=== PATIENT | male | born 1985 | race Caucasian/White ===

== ENCOUNTER 2017-07-14 15:33 | Emergency (ER) | payer OTHER ==
[2017-07-14] MEDS: LORazepam 1 MG TAB PO ×2 (16:24→18:43)
== END 2017-07-14 18:45 | disposition home or self-care (01) ==
LOC: M ED 15:33
DX: F43.10 Post-traumatic stress disorder, unspecified (principal); F32.9 Major depressive disorder, single episode, unspecified; F41.9 Anxiety disorder, unspecified; F17.200 Nicotine dependence, unspecified, uncomplicated; Z88.0 Allergy status to penicillin
CPT/HCPCS: 99284

== ENCOUNTER 2018-04-11 19:00 | Emergency (ER) | payer OTHER ==
[~2018-04-11] VITALS: Ht 185.4 cm; Wt 81.8 kg
[~2018-04-11 19:00] MED LIST: ATIV1TAB10 PO; GABA-845 PO; PRAZ5CAP PO; PROP60TA14 PO; SERO200T PO; SERO400T PO; VENL75TA2 PO
--- NOTE | 2018-04-11 19:35 | REP ---
Clinical: Left shoulder pain with history of prior surgery. Technique: Internal rotation, external rotation, and Y view of the left shoulder. Findings: The acromioclavicular joint appears intact and normal. The humeral head is normal. Surgical plugs overlie the glenoid consistent with prior surgery. Subacromial space is normal. No periarticular calcifications or loose bodies. Impression: With the exception of the postsurgical changes, left shoulder appears normal by radiographic evaluation. Electronically Signed by Moises Lee MD 04/11/2018 07:26 P
[2018-04-11] MEDS ORDERED: METF500T13 PO (19:40)
[2018-04-11] MEDS ORDERED: VENL150C43 PO (19:40)
[2018-04-11] MEDS ORDERED: LANTINJ4 SC ×2 (19:40)
[2018-04-11] MEDS ORDERED: FOLI800C PO (19:40)
[2018-04-11] MEDS ORDERED: HYDR50TA70 PO (19:40)
[2018-04-11] MEDS ORDERED: BACL10TA2 PO (19:40)
[2018-04-11] MEDS ORDERED: BUSP15TA47 PO (19:40)
[2018-04-11] MEDS ORDERED: MELO15TA28 PO (19:40)
[2018-04-11] MEDS ORDERED: OMEP40CA2 PO (19:40)
[2018-04-11] MEDS ORDERED: KETOROLAC 60 MG/2 ML VIAL (J1885) IM ONE (20:30)
[2018-04-11 20:35] LABS: BASO # 0.1 10^3/uL (0.0-0.2); BASO % 0.3 % (0.0-1.0); EOS # 0.2 10^3/uL (0.0-0.50); EOS % 1.6 % (0.0-3.0); HEMATOCRIT 37.8 % (42.0-52.0); LYMPH % 20.5 % (24.0-44.0); MEAN CORPUSCULAR HEMOGLOBIN 29.5 pg (27.0-33.0); MEAN CORPUSCULAR HGB CONC 34.4 g/dl (32.0-36.5); MEAN CORPUSCULAR VOLUME 85.9 fl (80.0-96.0); MONO # 0.7 10^3/uL (0.0-0.8); NEUTROPHILS # 10.6 10^3/uL (1.8-7.7); NEUTROPHILS % 72.3 % (36.0-66.0); PLATELET COUNT, AUTOMATED 172 10^3/uL (150-450); WHITE BLOOD COUNT 14.6 10^3/uL (4.0-10.0)
[2018-04-11 20:59] LABS: ERYTHROCYTE SEDIMENTATION RATE 22 mm/hr (0-15)
[2018-04-11 21:02] LABS: C REACTIVE PROTEIN QUANTITATIV 0.66 MG/DL (0.00-0.30); URIC ACID 3.5 MG/DL (3.5-7.2)
[2018-04-11 21:07] VITALS: BP 127/73
[2018-04-11] MEDS ORDERED: NORCO, ANEXSIA 5/325MG TABLET (HYDROcodone/ACETAMINOPHEN) PO ONE (21:30)
[2018-04-11] MEDS ORDERED: NAPR-50 PO (21:34)
== END 2018-04-11 21:44 | disposition home or self-care (01) ==
LOC: M ED 19:00
DX: M19.112 Post-traumatic osteoarthritis, left shoulder (principal)
CPT/HCPCS: 73030; 84550; 85025; 85379; 85652; 86140; 96372; 99283; J1885

== ENCOUNTER 2018-05-29 13:20 | Inpatient (IN) | payer OTHER ==
[~2018-05-29] VITALS: Ht 185.4 cm; Wt 87.9 kg
[~2018-05-29 13:20] MED LIST changes: +BACL10TA2 PO; +BUSP15TA47 PO; +FOLI800C PO; +HYDR50TA70 PO; +LANTINJ4 SC; +MELO15TA28 PO; +METF500T13 PO; +NAPR-837 PO; +OMEP40CA2 PO; +VENL150C43 PO
[2018-05-29] MEDS ORDERED: OXAZEPAM 15 MG CAP PO ONE (13:45)
[2018-05-29] MEDS ORDERED: QUET1TAB9 PO (13:53)
[2018-05-29] MEDS ORDERED: D 101000 PO (13:53)
[2018-05-29 14:43] LABS: HEMATOCRIT 40.4 % (42.0-52.0); HEMOGLOBIN 13.8 g/dl (13.5-17.5); MEAN CORPUSCULAR HEMOGLOBIN 29.1 pg (27.0-33.0); MEAN CORPUSCULAR HGB CONC 34.2 g/dl (32.0-36.5); MEAN CORPUSCULAR VOLUME 85.2 fl (80.0-96.0); PLATELET COUNT, AUTOMATED 148 10^3/uL (150-450); RED BLOOD COUNT 4.74 10^6/uL (4.30-6.10); WHITE BLOOD COUNT 8.2 10^3/uL (4.0-10.0)
[2018-05-29 15:11] LABS: ALBUMIN 4.6 GM/DL (3.2-5.2); ALT/SGPT 150 U/L (12-78); BILIRUBIN,DIRECT 0.1 MG/DL (0.0-0.2); BILIRUBIN,TOTAL 0.3 MG/DL (0.2-1.0); BLOOD UREA NITROGEN 7 MG/DL (7-18); CALCIUM LEVEL 8.7 MG/DL (8.5-10.1); CARBON DIOXIDE LEVEL 23 MEQ/L (21-32); CHLORIDE LEVEL 106 MEQ/L (98-107); CREATININE FOR GFR 0.89 MG/DL (0.70-1.30); ETHYL ALCOHOL (ETHANOL) 0.287 % (0.000-0.010); GLOMERULAR FILTRATION RATE > 60.0 (>60); GLUCOSE, FASTING 341 MG/DL (70-100); POTASSIUM SERUM 4.1 MEQ/L (3.5-5.1); SALICYLATE LEVEL 2.6 MG/DL (5.0-30.0); SODIUM LEVEL 140 MEQ/L (136-145); TOTAL PROTEIN 7.9 GM/DL (6.4-8.2)
[2018-05-29 15:12] LABS: ACETAMINOPHEN LEVEL < 2.0 UG/ML (10.0-30.0)
[2018-05-29 15:18] LABS: AMPHETAMINES LEVEL URINE NEGATIVE (NEGATIVE); BARBITURATES URINE NEGATIVE (NEGATIVE); BENZODIAZEPINES URINE NEGATIVE (NEGATIVE); CANNABINOIDS URINE NEGATIVE (NEGATIVE); COCAINE METABOLITE URINE NEGATIVE (NEGATIVE); METHADONE URINE NEGATIVE (NEGATIVE); OPIATES URINE NEGATIVE (NEGATIVE); PHENCYCLIDINE URINE NEGATIVE (NEGATIVE)
[2018-05-29] MEDS ORDERED: LORazepam 2 MG TAB PO PRN (15:30)
[2018-05-29] MEDS ORDERED: PROMETHAZINE INJ 25 MG/ML VIAL (J2550) IM ONE (18:30)
[2018-05-29] MEDS ORDERED: ONDANSETRON 4 MG ORAL DISINTEGRATING TAB (Q0162 PER 1MG) PO ONE (20:15)
[2018-05-29] MEDS ORDERED: HumaLOG INSULIN (NovoLOG) PER UNIT SC STA (20:24)
[2018-05-29] MEDS ORDERED: clonazePAM 0.5 MG TAB PO ONE (20:30)
[2018-05-29] MEDS ORDERED: THIAMINE 100 MG TAB PO SCH (21:00)
[2018-05-29] MEDS ORDERED: GI COCKTAIL 50ML BTL(HYOSCYAMINE/MAALOX/LIDOCAINE VISCOUS)(1:3:1) PO ONE (21:15)
[2018-05-29 22:45] LABS: LIPASE 58 U/L (73-393)
[2018-05-29] MEDS ORDERED: PHENobarbital 30 MG TAB PO ONE (23:00)
[2018-05-30] VITALS (10 sets, daily range): BP systolic 120–177; BP diastolic 70–108
[2018-05-30] MEDS ORDERED: PHENobarbital INJ 65 MG/ML VIAL (J2560) IV STA ×4 (00:07→02:03)
[2018-05-30] MEDS ORDERED: PHENobarbital INJ 65 MG/ML VIAL (J2560) As Ordered ONE (00:09)
[2018-05-30] MEDS ORDERED: MULTIVITAMIN -ADULT INJECTION 10 ML, THIAMINE INJection 100 MG, FOLIC ACID 1 MG in NS 1... IV ONE (00:15)
[2018-05-30] MEDS ORDERED: KETOROLAC 30 MG/ML VIAL (J1885) IV ONE (00:45)
[2018-05-30 00:49] LABS: CPK CREATINE PHOSPHOKINASE 230 U/L (39-308)
[2018-05-30] MEDS ORDERED: PANTOPRAZOLE 40MG INJ (PROTONIX) (C9113) IV ONE ×2 (01:00)
[2018-05-30] MEDS ORDERED: FOLI1TAB11 PO (01:05)
[2018-05-30] MEDS ORDERED: QUET1TAB9 PO (01:05)
[2018-05-30] MEDS ORDERED: PRAZ5CAP PO (01:05)
[2018-05-30] MEDS ORDERED: BASA100I SC (01:05)
[2018-05-30] MEDS ORDERED: HYDR50CA2 PO (01:05)
[2018-05-30] MEDS ORDERED: QUET1TAB8 PO (01:05)
[2018-05-30] MEDS ORDERED: NAPR-885 PO (01:05)
[2018-05-30] MEDS ORDERED: GABA-843 PO (01:05)
[2018-05-30] MEDS ORDERED: PROP60TA14 PO (01:05)
[2018-05-30] MEDS ORDERED: METH1TAB40 PO (01:06)
[2018-05-30] MEDS ORDERED: MULTCAP PO (01:06)
[2018-05-30] MEDS ORDERED: TRAZ-160 PO (01:06)
[2018-05-30] MEDS ORDERED: VITA100T89 PO (01:06)
[2018-05-30] MEDS ORDERED: GI COCKTAIL 50ML BTL(HYOSCYAMINE/MAALOX/LIDOCAINE VISCOUS)(1:3:1) PO ONE (02:30)
[2018-05-30] MEDS ORDERED: GLUCAGON FOR INJ 1 MG VIAL (J1610) SC PRN (02:30)
[2018-05-30] MEDS ORDERED: DEXTROSE 50% 50 ML SYRINGE IV PRN (02:30)
[2018-05-30] MEDS ORDERED: GLUCOSE 4 GM CHEW TABLET PO PRN (02:30)
--- NOTE | 2018-05-30 03:17 | HPEPDOC ---
General Date of Admission May 29, 2018 at 13:21 Chief Complaint The patient is a 32-year-old male admitted with a reason for visit of Alcohol W ithdrawl Syndrome Without Complication. History of Present Illness 32-year-old male with past medical history of hypertension, diabetes, neuropathy, chronic pain, mood disorder/depression, and alcohol abuse was brought to the ER by a [employer] johnson after he stated that he was going into alcohol withdrawal and needed help. The patient states that he drinks a half a gallon of 80 proof vodka daily for the past 10 years. He reports that his last drink was this morning. He denies any acute complaints of fevers, chills, chest pain, palpitations, abdominal pain, or any nausea/vomiting/diarrhea. In the ER, the patient was noted to be tachycardic and was displaying signs/symptoms of active withdrawal as per the ER provider. He was given multiple doses of sedatives. The patient will be admitted to the hospitalist service for further evaluation and management. Home Medications Scheduled Baclofen (Baclofen) 10 Mg Tab, 10 MG PO TID, (Reported) Buspirone HCl (Buspirone HCl) 15 Mg Tab, 15 MG PO TID, (Reported) Cholecalciferol (Vitamin D3) (Vitamin D3) 1,000 Unit Capsule, 1,000 UNITS PO DAILY, (Reported) Folic Acid (Folic Acid) 1 Mg Tablet, 1 MG PO DAILY, (Reported) Gabapentin (Gabapentin) 300 Mg Capsule, 900 MG PO TID, (Reported) Hydroxyzine Pamoate (Hydroxyzine Pamoate) 50 Mg Capsule, 100 MG PO TID, (Reported) Insulin Glargine,Hum.rec.anlog (Basaglar Kwikpen U-100) 100 Unit/1 Ml Insuln.pen, 40 UNIT SC BID, (Reported) Meloxicam (Meloxicam) 15 Mg Tab, 15 MG PO DAILY, (Reported) Metformin HCl (Metformin HCl) 500 Mg Tab, 500 MG PO BID, (Reported) Methocarbamol (Methocarbamol) 500 Mg Tablet, 500 MG PO QID, (Reported) Multivitamin (Multivitamins) 1 Each Capsule, 1 CAP PO DAILY, (Reported) Naproxen (Naproxen) 500 Mg Tablet, 500 MG PO BID, (Reported) Omeprazole (Omeprazole) 40 Mg Cap, 40 MG PO DAILY, (Reported) Prazosin Hcl (Prazosin HCl) 5 Mg Capsule, 5 MG PO DAILY, (Reported) Propranolol Hcl (Propranolol HCl) 60 Mg Tablet, 60 MG PO DAILY, (Reported) Quetiapine Fumarate (Quetiapine Fumarate) 200 Mg Tablet, 200 MG PO BID, (Reported) IN THE MORNING AND AROUND NOON Quetiapine Fumarate (Quetiapine Fumarate) 100 Mg Tablet, 250 MG PO QHS, (Reported) Thiamine Mononitrate (Vit B1) (Vitamin B-1) 100 Mg Tablet, 100 MG PO DAILY, (Reported) Trazodone HCl (Trazodone HCl) 50 Mg Tablet, 50 MG PO QHS, (Reported) Venlafaxine HCl (Venlafaxine HCl ER) 150 Mg Cap, 150 MG PO DAILY, (Reported) Allergies Coded Allergies: amoxicillin (Verified Allergy, Intermediate, RED MAN SYNDROME, 05/29/18) Past Medical History Medical History As noted in HPI. Social History Alcohol: heavy (drinks half a gallon of proof vodka daily for the past 10 years) Drugs: denies Review of Systems Other systems 10 point review of systems negative unless otherwise specified in HPI. Physical Examination General Exam: Positive: Alert, Cooperative, Mild Distress (2/2 alcohol withdrawal), Moderate Distress ENT Exam: Positive: Atraumatic, Mucous membr. moist/pink Neck Exam: Negative: JVD Chest Exam: Positive: Clear to auscultation, Normal air movement Heart Exam: Positive: Tachycardic, Normal S1, Normal S2 Abdomen Exam: Positive: Soft; Negative: Tenderness Extremity Exam: Negative: Tenderness, Swelling Psych Exam: Positive: Oriented x 3 Vital Signs Vital Signs Date Time Temp Pulse Resp B/P (MAP) Pulse Ox O2 Delivery O2 Flow Rate FiO2 05/30/18 03:00 98.6 150/98 (115) 05/30/18 02:55 93 24 97 Room Air Laboratory Data Labs 24H Laboratory Tests 2 05/29/18 14:22: Bedside Glucose (Misc Panel) 304H 05/29/18 14:26: Nucleated Red Blood Cells % (auto) 0.0, Anion Gap 11, Glomerular Filtration Rate > 60.0, Calcium Level 8.7, Aspartate Amino Transf (AST/SGOT) 92H, Alanine Aminotransferase (ALT/SGPT) 150H, Alkaline Phosphatase 115, Total Bilirubin 0.3, Direct Bilirubin 0.1, Total Creatine Kinase 230, Total Protein 7.9, Albumin 4.6, Albumin/Globulin Ratio 1.39, Lipase 58L, Thyroid Stimulating Hormone (TSH) 0.440, Salicylates Level 2.6L, Acetaminophen Level < 2.0L, Ethyl Alcohol Level 0.287H 05/29/18 14:37: Urine Amphetamines Screen NEGATIVE, Urine Benzodiazepines Screen NEGATIVE, Urine Opiates Screen NEGATIVE, Urine Methadone Screen NEGATIVE, Urine Barbiturates Screen NEGATIVE, Urine Phencyclidine Screen NEGATIVE, Urine Cocaine Metabolite Screen NEGATIVE, Urine Cannabinoids Screen NEGATIVE 05/29/18 20:20: Bedside Glucose (Misc Panel) 272H 05/29/18 22:10: Bedside Glucose (Misc Panel) 62L 05/29/18 23:01: Bedside Glucose (Misc Panel) 132H 05/30/18 00:16: Bedside Glucose (Misc Panel) 220H CBC/BMP Laboratory Tests 05/29/18 14:26 Red Blood Count 4.74, Mean Corpuscular Volume 85.2, Mean Corpuscular Hemoglobin 29.1, Mean Corpuscular Hemoglobin Concent 34.2, Red Cell Distribution Width 14.9 H Plan / VTE VTE Prophylaxis Ordered?: Yes Plan Plan Alcohol Withdrawal Blood Alcohol level noted to be 0.287 in the ER UDS otherwise negative CIWA Protocol Withdrawal, Seizures, Fall precautions ordered IVF Hydration, Serax, Ativan prn We will cont to monitor Diabetes Mellitus ISS as ordered We will hold basal insulin until the patient is able to consistent take a PO diet as he did become hypoglycemic in the ER HTN, stable Cont Prazosin Mood Disorder/Depression Denies SI/HI Cont meds as ordered GERD Cont PPI DVT Prophylaxis SCDs/TEDs (OOB) LADI SINGH MD May 30, 2018 03:17
[2018-05-30] MEDS: OXAZEPAM 10 MG CAP PO SCH ×3 (04:14→18:13)
[2018-05-30] MEDS: NS 1,000 ML IV SCH ×2 (05:40→12:27)
[2018-05-30] MEDS: LORazepam 1 MG TAB PO PRN (06:05)
[2018-05-30] MEDS ORDERED: GABAPENTIN 300 MG CAP PO ONE (07:00)
--- NOTE | 2018-05-30 07:26 | REP ---
Portable chest, 12:48 a.m., single AP view, the patient sitting: Comparison is 12/24/2009. The lung kraus are clear. Cardiac size is normal. The davidson, mediastinum, and bony thorax are unremarkable. There is no pneumomediastinum. There is no pneumothorax. There is no pleural effusion. There are orthopedic screws in the left shoulder. Impression: Essentially negative portable chest. However, given the clinical history, I recommend follow-up chest and abdomen CT. Electronically Signed by Contreras Rdz MD 05/30/2018 07:17 A
[2018-05-30 07:58] LABS: ALBUMIN 4.1 GM/DL (3.2-5.2); ALT/SGPT 123 U/L (12-78); BILIRUBIN,DIRECT 0.2 MG/DL (0.0-0.2); BILIRUBIN,TOTAL 0.8 MG/DL (0.2-1.0); BLOOD UREA NITROGEN 12 MG/DL (7-18); CALCIUM LEVEL 8.5 MG/DL (8.5-10.1); CARBON DIOXIDE LEVEL 27 MEQ/L (21-32); CHLORIDE LEVEL 105 MEQ/L (98-107); CREATININE FOR GFR 0.74 MG/DL (0.70-1.30); GLOMERULAR FILTRATION RATE > 60.0 (>60); GLUCOSE, FASTING 174 MG/DL (70-100); MAGNESIUM LEVEL 1.9 MG/DL (1.8-2.4); POTASSIUM SERUM 3.6 MEQ/L (3.5-5.1); SODIUM LEVEL 139 MEQ/L (136-145); TOTAL PROTEIN 7.3 GM/DL (6.4-8.2)
[2018-05-30] MEDS: PROPRANOLOL 20 MG TAB PO SCH (08:08)
[2018-05-30] MEDS: PRAZOSIN 1 MG CAP PO SCH (08:09)
[2018-05-30] MEDS: VENLAFAXINE **XR** 75MG CAPSULE PO SCH (08:09)
[2018-05-30] MEDS: busPIRone 5 MG TAB PO SCH ×3 (08:09→22:35)
[2018-05-30] MEDS: OMEPRAZOLE 20 MG CAP PO SCH (08:10)
[2018-05-30] MEDS: QUEtiapine FUMARATE 200 MG TAB PO SCH ×2 (08:10→14:00)
[2018-05-30] MEDS ORDERED: MULTIVITAMINS/MINERALS THERAP 1 TAB PO SCH (09:00)
[2018-05-30] MEDS ORDERED: FOLIC ACID 1 MG TAB PO SCH (09:00)
[2018-05-30] MEDS: HumaLOG INSULIN (NovoLOG) PER UNIT SC SCH ×4 (10:00→21:00)
[2018-05-30 11:19] LABS: HEMATOCRIT 35.9 % (42.0-52.0); HEMOGLOBIN 12.4 g/dl (13.5-17.5); MEAN CORPUSCULAR HEMOGLOBIN 29.3 pg (27.0-33.0); MEAN CORPUSCULAR HGB CONC 34.5 g/dl (32.0-36.5); MEAN CORPUSCULAR VOLUME 84.9 fl (80.0-96.0); RED BLOOD COUNT 4.23 10^6/uL (4.30-6.10); WHITE BLOOD COUNT 7.2 10^3/uL (4.0-10.0)
[2018-05-30 11:21] LABS: PLATELET COUNT, AUTOMATED 94 10^3/uL (150-450)
[2018-05-30 13:08] LABS: HEMOGLOBIN A1c 7.9 %
[2018-05-30] MEDS: GABAPENTIN 300 MG CAP PO SCH ×2 (16:00→22:36)
[2018-05-30] MEDS ORDERED: QUEtiapine FUMARATE 50 MG TAB PO SCH (21:00)
--- NOTE | 2018-05-30 21:24 | IPNPDOC ---
Subjective Date Seen The patient was seen on 05/30/18. Subjective Chief Complaint/HPI Patient was admitted for alcohol withdrawal in setting of alcohol dependence Objective Physical Examination General Exam: Positive: Alert, Cooperative, Mild Distress (2/2 alcohol withdrawal), Moderate Distress ENT Exam: Positive: Atraumatic, Mucous membr. moist/pink Neck Exam: Negative: JVD Chest Exam: Positive: Clear to auscultation, Normal air movement Heart Exam: Positive: Tachycardic, Normal S1, Normal S2 Abdomen Exam: Positive: Soft; Negative: Tenderness Extremity Exam: Negative: Tenderness, Swelling Psych Exam: Positive: Oriented x 3 Assessment /Plan Assessment I personally saw and examined the patient earlier today The patient was a little sleepy after he had received oxazepam earlier Per RN, CIWA score this morning was 16 I reviewed the vitals and labs as well as imaging studies On exam, patient was somnolent but arousable He did sit up for a brief while but then went back to sleep Did not answer questions however. Seems a little confused. He is moving all 4 extremities Abdomen is soft and nontender Cardiac and lung exams were unremarkable Alcohol dependence with alcohol withdrawal: -Patient reportedly consumes half a gallon of vodka daily -High risk for DTs -Continue scheduled oxazepam and when necessary Ativan -Patient will need to stay in the hospital beyond 2 midnights given his already significant alcohol withdrawal symptoms with high CIWA score and despite receiving multiple phenobarbital doses last night -Accordingly, he will be changed to inpatient admission -Continue IV fluids Plan/VTE VTE Prophylaxis Ordered?: Yes VS, I&O, 24H, [facility] Vital Signs/I&O Vital Signs Date Time Temp Pulse Resp B/P (MAP) Pulse Ox O2 Delivery O2 Flow Rate FiO2 05/30/18 18:53 75 130/100 05/30/18 14:00 98.7 17 98 05/30/18 02:55 Room Air I&O- Last 24 Hours up to 6 AM 05/30/18 06:00 Intake Total 450 ml Output Total 0 ml Balance 450 ml Laboratory Data 24H LABS Laboratory Tests 2 05/29/18 22:10: Bedside Glucose (Misc Panel) 62L 05/29/18 23:01: Bedside Glucose (Misc Panel) 132H 05/30/18 00:16: Bedside Glucose (Misc Panel) 220H 05/30/18 07:03: Nucleated Red Blood Cells % (auto) 0.3H, Immature Platelet Fraction 5.9, Anion Gap 7L, Glomerular Filtration Rate > 60.0, Estimated Mean Plasma Glucose 180H, Hemoglobin A1c 7.9, Calcium Level 8.5, Magnesium Level 1.9, Aspartate Amino Transf (AST/SGOT) 71H, Alanine Aminotransferase (ALT/SGPT) 123H, Alkaline Phosphatase 88, Total Bilirubin 0.8#, Direct Bilirubin 0.2, Total Protein 7.3, Albumin 4.1, Albumin/Globulin Ratio 1.28 05/30/18 09:06: Bedside Glucose (Misc Panel) 157H 05/30/18 11:59: Bedside Glucose (Misc Panel) 168H 05/30/18 16:33: Bedside Glucose (Misc Panel) 125H CBC/BMP Laboratory Tests 05/30/18 07:03 Red Blood Count 4.23 L, Mean Corpuscular Volume 84.9, Mean Corpuscular Hemoglobin 29.3, Mean Corpuscular Hemoglobin Concent 34.5, Red Cell Distribution Width 14.9 H KEVIN COOPER MD May 30, 2018 21:24
[2018-05-30] MEDS: ACETAMINOPHEN TAB 650MG DOSE (2X325MG) PO PRN (22:36)
[2018-05-31] VITALS (8 sets, daily range): BP systolic 114–158; BP diastolic 80–108
[2018-05-31] MEDS: NS 1,000 ML IV SCH (02:00)
[2018-05-31] MEDS ORDERED: LORazepam 1 MG TAB As Ordered ONE (04:22)
[2018-05-31] MEDS: LORazepam 1 MG TAB PO PRN (04:27)
[2018-05-31] MEDS: OXAZEPAM 10 MG CAP PO SCH ×4 (06:15→22:16)
[2018-05-31 07:24] LABS: BASO % 0.3 % (0.0-1.0); EOS # 0.1 10^3/uL (0.0-0.50); HEMATOCRIT 37.1 % (42.0-52.0); HEMOGLOBIN 12.7 g/dl (13.5-17.5); LYMPH # 1.5 10^3/uL (1.5-4.5); LYMPH % 25.2 % (24.0-44.0); MEAN CORPUSCULAR HEMOGLOBIN 29.1 pg (27.0-33.0); MEAN CORPUSCULAR HGB CONC 34.2 g/dl (32.0-36.5); MEAN CORPUSCULAR VOLUME 84.9 fl (80.0-96.0); MONO # 0.4 10^3/uL (0.0-0.8); MONO % 6.3 % (0.0-5.0); NEUTROPHILS % 65.9 % (36.0-66.0); PLATELET COUNT, AUTOMATED 100 10^3/uL (150-450); RED BLOOD COUNT 4.37 10^6/uL (4.30-6.10)
[2018-05-31] MEDS ORDERED: IBUPROFEN 600 MG TAB PO PRN (07:30)
[2018-05-31] MEDS ORDERED: ONDANSETRON 4MG/2ML VIAL (J2405) IV PRN (07:30)
[2018-05-31 07:44] LABS: ALBUMIN 3.8 GM/DL (3.2-5.2); ALT/SGPT 127 U/L (12-78); BILIRUBIN,TOTAL 0.7 MG/DL (0.2-1.0); BLOOD UREA NITROGEN 8 MG/DL (7-18); CALCIUM LEVEL 8.3 MG/DL (8.5-10.1); CARBON DIOXIDE LEVEL 26 MEQ/L (21-32); CHLORIDE LEVEL 102 MEQ/L (98-107); CREATININE FOR GFR 0.61 MG/DL (0.70-1.30); GLOMERULAR FILTRATION RATE > 60.0 (>60); GLUCOSE, FASTING 160 MG/DL (70-100); PHOSPHORUS LEVEL 2.7 MG/DL (2.5-4.9); POTASSIUM SERUM 3.6 MEQ/L (3.5-5.1); SODIUM LEVEL 136 MEQ/L (136-145); TOTAL PROTEIN 6.9 GM/DL (6.4-8.2)
[2018-05-31] MEDS: HumaLOG INSULIN (NovoLOG) PER UNIT SC SCH ×4 (09:15→20:39)
[2018-05-31] MEDS: GABAPENTIN 300 MG CAP PO SCH ×4 (10:42→22:15)
[2018-05-31] MEDS: busPIRone 5 MG TAB PO SCH ×3 (10:46→22:15)
[2018-05-31] MEDS: PROPRANOLOL 20 MG TAB PO SCH (10:46)
[2018-05-31] MEDS: ACETAMINOPHEN TAB 650MG DOSE (2X325MG) PO PRN ×2 (10:48→20:38)
[2018-05-31] MEDS: OMEPRAZOLE 20 MG CAP PO SCH (10:48)
[2018-05-31] MEDS: PRAZOSIN 1 MG CAP PO SCH (10:50)
[2018-05-31] MEDS: VENLAFAXINE **XR** 75MG CAPSULE PO SCH (10:50)
[2018-05-31] MEDS: QUEtiapine FUMARATE 200 MG TAB PO SCH ×4 (10:51→22:18)
--- NOTE | 2018-05-31 18:53 | IPNPDOC ---
Subjective Date Seen The patient was seen on 05/31/18. Subjective Chief Complaint/HPI Alcohol withdrawal Events since last encounter The patient reports he is doing better as well as his alcohol withdrawal. Denies any nausea or vomiting. Denies any chest pain or shortness of breath. Reports some sweats. No fever or chills. No tremors. Urinating okay and having bowel movement acute. Objective Physical Examination General Exam: Positive: Alert, Cooperative, No Acute Distress ENT Exam: Positive: Mucous membr. moist/pink Chest Exam: Positive: Clear to auscultation, Normal air movement Heart Exam: Positive: Rate Normal, Normal S1, Normal S2 Abdomen Exam: Positive: Soft; Negative: Tenderness Extremity Exam: Positive: Normal pulses; Negative: Edema Neuro Exam: Positive: Other (awake, alert, oriented 3.) Psych Exam: Positive: Oriented x 3 Assessment /Plan Assessment Alcohol Withdrawal in setting of history of alcohol dependence: -Doing better with Serax -Reduced dose today -Advised regarding quitting drinking -Stop IV fluids -Continue prn Ativan Diabetes Mellitus -SSI -Holding basal insulin - may resume once fingersticks are higher or tolerating oral intake well HTN, stable -Cont Prazosin Mood Disorder/Depression -Continue Seroquel, BuSpar, Effexor GERD -Cont PPI Disposition: Anticipate possible discharge home by tomorrow if continues to improve Plan/VTE VTE Prophylaxis Ordered?: Yes VS, I&O, 24H, Fishbone Vital Signs/I&O Vital Signs Date Time Temp Pulse Resp B/P (MAP) Pulse Ox O2 Delivery O2 Flow Rate FiO2 05/31/18 14:00 97.5 97 17 132/81 (98) 98 05/30/18 02:55 Room Air I&O- Last 24 Hours up to 6 AM 05/31/18 06:00 Intake Total 1300 ml Output Total 0 ml Balance 1300 ml Laboratory Data 24H LABS Laboratory Tests 2 05/30/18 22:43: Bedside Glucose (Misc Panel) 101 05/31/18 06:29: Immature Granulocyte % (Auto) 0.3, White Blood Count 6.0, Red Blood Count 4.37, Hemoglobin 12.7L, Hematocrit 37.1L, Mean Corpuscular Volume 84.9, Mean Corpuscular Hemoglobin 29.1, Mean Corpuscular Hemoglobin Concent 34.2, Red Cell Distribution Width 14.3, Platelet Count 100L, Neutrophils (%) (Auto) 65.9, Lymphocytes (%) (Auto) 25.2, Monocytes (%) (Auto) 6.3H, Eosinophils (%) (Auto) 2.0, Basophils (%) (Auto) 0.3, Neutrophils # (Auto) 4.0, Lymphocytes # (Auto) 1.5, Monocytes # (Auto) 0.4, Eosinophils # (Auto) 0.1, Basophils # (Auto) 0.0, Nucleated Red Blood Cells % (auto) 0.0, Anion Gap 8, Glomerular Filtration Rate > 60.0, Blood Urea Nitrogen 8, Creatinine 0.61L, Sodium Level 136, Potassium Level 3.6, Chloride Level 102, Carbon Dioxide Level 26, Calcium Level 8.3L, Phosphorus Level 2.7, Aspartate Amino Transf (AST/SGOT) 110H, Alanine Aminotransferase (ALT/SGPT) 127H, Alkaline Phosphatase 79, Total Bilirubin 0.7, Total Protein 6.9, Albumin 3.8, Magnesium Level 2.0, Albumin/Globulin Ratio 1.23 05/31/18 11:39: Bedside Glucose (Misc Panel) 84 05/31/18 16:35: Bedside Glucose (Misc Panel) 188H CBC/BMP Laboratory Tests 05/31/18 06:29 Red Blood Count 4.37, Mean Corpuscular Volume 84.9, Mean Corpuscular Hemoglobin 29.1, Mean Corpuscular Hemoglobin Concent 34.2, Red Cell Distribution Width 14.3, Neutrophils (%) (Auto) 65.9, Lymphocytes (%) (Auto) 25.2, Monocytes (%) (Auto) 6.3 H, Eosinophils (%) (Auto) 2.0, Basophils (%) (Auto) 0.3, Neutrophils # (Auto) 4.0, Lymphocytes # (Auto) 1.5, Monocytes # (Auto) 0.4, Eosinophils # (Auto) 0.1, Basophils # (Auto) 0.0, Calcium Level 8.3 L, Phosphorus Level 2.7, Aspartate Amino Transf (AST/SGOT) 110 H, Alanine Aminotransferase (ALT/SGPT) 127 H, Alkaline Phosphatase 79, Total Bilirubin 0.7, Total Protein 6.9, Albumin 3.8 KEVIN COOPER MD May 31, 2018 18:53
[2018-06-01 06:00] VITALS: BP_SYST 124; BP_SYST 142; BP_DIAS 86; BP_DIAS 88
[2018-06-01 07:25] LABS: ALBUMIN 3.9 GM/DL (3.2-5.2); ALT/SGPT 157 U/L (12-78); BILIRUBIN,TOTAL 0.4 MG/DL (0.2-1.0); BLOOD UREA NITROGEN 11 MG/DL (7-18); CALCIUM LEVEL 8.5 MG/DL (8.5-10.1); CARBON DIOXIDE LEVEL 24 MEQ/L (21-32); CHLORIDE LEVEL 99 MEQ/L (98-107); CREATININE FOR GFR 0.77 MG/DL (0.70-1.30); GLOMERULAR FILTRATION RATE > 60.0 (>60); GLUCOSE, FASTING 307 MG/DL (70-100); POTASSIUM SERUM 3.6 MEQ/L (3.5-5.1); SODIUM LEVEL 133 MEQ/L (136-145)
[2018-06-01] MEDS: PRAZOSIN 1 MG CAP PO SCH (09:00)
[2018-06-01] MEDS ORDERED: LEVEMIR (INSULIN DETEMIR) 1 UNITS/0.01ML SC SCH (09:00)
[2018-06-01] MEDS: HumaLOG INSULIN (NovoLOG) PER UNIT SC SCH ×2 (09:02→11:54)
[2018-06-01] MEDS: busPIRone 5 MG TAB PO SCH ×2 (09:04→16:10)
[2018-06-01] MEDS: OMEPRAZOLE 20 MG CAP PO SCH (09:04)
[2018-06-01] MEDS: VENLAFAXINE **XR** 75MG CAPSULE PO SCH (09:05)
[2018-06-01] MEDS: OXAZEPAM 10 MG CAP PO SCH (09:05)
[2018-06-01 09:06] VITALS: BP 138/98
[2018-06-01] MEDS: QUEtiapine FUMARATE 200 MG TAB PO SCH ×2 (09:06→14:37)
[2018-06-01] MEDS: PROPRANOLOL 20 MG TAB PO SCH (09:06)
[2018-06-01] MEDS: GABAPENTIN 300 MG CAP PO SCH ×2 (09:06→16:10)
[2018-06-01 14:00] VITALS: BP 148/97
[2018-06-01] MEDS ORDERED: OXAZEPAM 10 MG CAP PO ONE (16:00)
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
== END 2018-06-01 16:20 | disposition home or self-care (01) | DRG 897 ==
LOC: M ED 13:20 → M ED INP 13:21 → M MSPAV 05-30 04:30 → OBSVTOIN 05-30 15:32
PROVIDERS: ADMIT Internal Medicine; ATTEND Internal Medicine
DX: F10.239 Alcohol dependence with withdrawal, unspecified (principal); E11.40 Type 2 diabetes mellitus with diabetic neuropathy, unspecified; K70.10 Alcoholic hepatitis without ascites; I10 Essential (primary) hypertension; K21.9 Gastro-esophageal reflux disease without esophagitis; G89.29 Other chronic pain; F32.9 Major depressive disorder, single episode, unspecified; Z79.4 Long term (current) use of insulin; Z79.899 Other long term (current) drug therapy; Z88.0 Allergy status to penicillin

== ENCOUNTER 2018-07-13 20:51 | Emergency (ER) | payer OTHER ==
[~2018-07-13] VITALS: Ht 185.4 cm; Wt 83.6 kg
[~2018-07-13 20:51] MED LIST changes: +BASA100I SC; +D 101000 PO; +FOLI1TAB11 PO; +GABA-843 PO; +HYDR50CA2 PO; +METH1TAB40 PO; +MULTCAP PO; +NAPR-885 PO; +QUET1TAB8 PO; +QUET1TAB9 PO; +TRAZ-252 PO; +VITA100T89 PO
[2018-07-13] MEDS ORDERED: NS 1,000 ML IV ONE (21:00)
[2018-07-13] MEDS ORDERED: ISOVUE-370 76% 100ML VIAL (Q9967) As Ordered ONE (21:12)
[2018-07-13 21:22] LABS: BASO % 0.3 % (0.0-1.0); EOS # 0.1 10^3/uL (0.0-0.50); EOS % 0.5 % (0.0-3.0); HEMATOCRIT 39.6 % (42.0-52.0); HEMOGLOBIN 13.6 g/dl (13.5-17.5); LYMPH # 3.4 10^3/uL (1.5-4.5); LYMPH % 29.5 % (24.0-44.0); MEAN CORPUSCULAR HEMOGLOBIN 30.2 pg (27.0-33.0); MEAN CORPUSCULAR HGB CONC 34.3 g/dl (32.0-36.5); MONO # 0.5 10^3/uL (0.0-0.8); NEUTROPHILS # 7.5 10^3/uL (1.8-7.7); NEUTROPHILS % 65.3 % (36.0-66.0); PLATELET COUNT, AUTOMATED 186 10^3/uL (150-450); VENOUS BASE EXCESS -2.8 (-2.0-2.0); VENOUS O2 SATURATION 96.7 % (60.0-80.0); VENOUS PARTIAL PRESSURE CO2 33.7 mmHg (38.0-50.0); VENOUS PARTIAL PRESSURE O2 92.8 mmHg (30.0-50.0); VENOUS PH 7.413 UNITS (7.330-7.430); VENOUS STANDARD HCO3 22.2 MEQ/L; VENOUS TOTAL CO2 22.1 MEQ/L (24.0-28.0); WHITE BLOOD COUNT 11.5 10^3/uL (4.0-10.0)
[2018-07-13 21:35] LABS: AMPHETAMINES LEVEL URINE NEGATIVE (NEGATIVE); BARBITURATES URINE NEGATIVE (NEGATIVE); BENZODIAZEPINES URINE NEGATIVE (NEGATIVE); CANNABINOIDS URINE NEGATIVE (NEGATIVE); COCAINE METABOLITE URINE POSITIVE (NEGATIVE); METHADONE URINE NEGATIVE (NEGATIVE); OPIATES URINE NEGATIVE (NEGATIVE); PHENCYCLIDINE URINE NEGATIVE (NEGATIVE)
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
[2018-07-13 21:51] LABS: ACETAMINOPHEN LEVEL < 2.0 UG/ML (10.0-30.0); ALBUMIN 4.1 GM/DL (3.2-5.2); ALT/SGPT 69 U/L (12-78); BILIRUBIN,DIRECT < 0.1 MG/DL (0.0-0.2); BILIRUBIN,TOTAL 0.2 MG/DL (0.2-1.0); BLOOD UREA NITROGEN 8 MG/DL (7-18); CALCIUM LEVEL 8.2 MG/DL (8.5-10.1); CARBON DIOXIDE LEVEL 25 MEQ/L (21-32); CHLORIDE LEVEL 108 MEQ/L (98-107); CPK CREATINE PHOSPHOKINASE 324 U/L (39-308); CREATININE FOR GFR 0.83 MG/DL (0.70-1.30); ETHYL ALCOHOL (ETHANOL) 0.377 % (0.000-0.010); GLOMERULAR FILTRATION RATE > 60.0 (>60); GLUCOSE, FASTING 346 MG/DL (70-100); LIPASE 54 U/L (73-393); MB/CK RELATIVE INDEX 0.96 (< OR =4); POTASSIUM SERUM 3.7 MEQ/L (3.5-5.1); SALICYLATE LEVEL 3.6 MG/DL (5.0-30.0); SODIUM LEVEL 144 MEQ/L (136-145); THYROID STIMULATING HORMONE 0.054 uIU/ML (0.358-3.740); TOTAL PROTEIN 7.2 GM/DL (6.4-8.2); TROPONIN I < 0.02 NG/ML (< 0.10)
[2018-07-13 21:52] LABS: OSMOLALITY SERUM 404 MOSM/KG (275-295)
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
[2018-07-13 23:45] VITALS: BP 147/88
[2018-07-13] MEDS ORDERED: LORA0.5T11 PO (23:45)
[2018-07-13] MEDS ORDERED: WARF-22 PO (23:45)
[2018-07-13] MEDS ORDERED: B-1100TA2 PO (23:45)
[2018-07-13] MEDS ORDERED: NORV5TAB PO (23:47)
--- NOTE | 2018-07-14 06:43 | ED PDOC ---
Post-Departure Follow-Up neftaly larry faxed formal report of ct abd/p for fu Jerry Yoder MD Jul 14, 2018 06:43
--- NOTE | 2018-07-14 15:08 | ECGEPIP ---
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
== END 2018-07-13 23:49 | disposition home or self-care (01) ==
LOC: M ED 20:51
DX: F10.129 Alcohol abuse with intoxication, unspecified (principal); E10.9 Type 1 diabetes mellitus without complications; Z79.899 Other long term (current) drug therapy; Z79.4 Long term (current) use of insulin; Z79.01 Long term (current) use of anticoagulants; Z88.0 Allergy status to penicillin
CPT/HCPCS: 36415; 70450; 71260; 72125; 74177; 80047; 80048; 80076; 80307; 81001; 82550; 82553; 82803; 83605; 83690; 83930; 84443; 84484; 85025; 93005; 93041; 99285; G0480; Q9967

== ENCOUNTER → 2018-09-04 | Outpatient (REF) ==
[~2018-09-04] MED LIST changes: +B-1100TA2 PO; +LORA0.5T11 PO; +NORV5TAB PO; +WARF-22 PO
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
--- NOTE | 2018-09-05 07:59 | REP ---
Clinical: On top seen. Technique: Portable AP views of the pelvis. Findings: Pelvic bones are intact and without acute fracture or dislocation. Impression: No pelvic fracture or dislocation appreciated. Electronically Signed by Moises Lee MD 09/05/2018 07:51 A
--- NOTE | 2018-09-05 07:59 | REP ---
Clinical: On top seen. Technique: Portable AP and lateral skull radiographs. Findings: Examination is limited by positioning and postmortem state. No obvious fracture identified. No significant subcutaneous emphysema. No significant foreign body. Impression: Grossly unremarkable examination . Electronically Signed by Moises Lee MD 09/05/2018 07:50 A
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
== END ==
LOC: M LAB 08:43
DX: Z02.89 Encounter for other administrative examinations